=== PATIENT | male | born 1950 | race Caucasian/White ===

== ENCOUNTER 2022-06-09 14:46 | Inpatient (IN) | payer MEDICARE, BC ==
[~2022-06-09] VITALS: Ht 182.9 cm; Wt 83.6 kg
[2022-06-09] MEDS ORDERED: IV NORMAL SALINE 1000 ML BAG IV ONE (15:00)
[2022-06-09] MEDS ORDERED: ACETAMINOPHEN ES 500 MG TABLET PO ONE (15:00)
[2022-06-09] MEDS ORDERED: ACETAMINOPHEN 325 MG TABLET ONE (15:10)
[2022-06-09 15:16] LABS: HEMATOCRIT 43.6 % (36.7-47.1); MEAN CORPUSCULAR HEMOGLOBIN 30.2 uug (23.8-33.4); MEAN CORPUSCULAR VOLUME 90.8 fL (73.0-96.2); PLATELET COUNT (AUTO) 291 K/uL (152-348)
[2022-06-09 15:26] LABS: CARBON DIOXIDE 24 mmol/L (21-32); CHLORIDE 101 mmol/L (98-107); GLUCOSE 145 mg/dL (74-106); POTASSIUM 3.3 mmol/L (3.5-5.1); UREA NITROGEN, BLOOD 17 mg/dL (7-18)
[2022-06-09 15:35] LABS: ALANINE AMINOTRANSFERASE 29 U/L (16-63); ALKALINE PHOSPHATASE 91 U/L (50-136); ASPARTATE AMINOTRANSFERASE 19 U/L (15-37); BILIRUBIN,DIRECT 0.1 mg/dL (0.0-0.2); BILIRUBIN,TOTAL 0.6 mg/dL (0.2-1.0); TOTAL PROTEIN, SERUM 7.2 g/dL (6.4-8.2)
[2022-06-09] MEDS ORDERED: LIDOCAINE 1%-EPI 1:100,000 20 ML VIAL ONE (17:11)
[2022-06-09] MEDS ORDERED: MAGNESIUM HYDROXIDE 30 ML LIQUID UDC PO PRN (19:30)
[2022-06-09] MEDS ORDERED: ONDANSETRON 4 MG/2 ML VIAL IV PRN (19:30)
[2022-06-09] MEDS ORDERED: HYDROCODONE/APAP 5-325MG TABLET PO PRN (19:30)
[2022-06-09] MEDS ORDERED: REMEDY ESSENTIAL ZINC PASTE 113 GM TP PRN (19:30)
[2022-06-09] MEDS ORDERED: ACETAMINOPHEN 325 MG TABLET PO PRN (19:30)
[2022-06-09 21:00] VITALS: BP 107/45
[2022-06-10] VITALS: BP 107/76
[2022-06-10 04:00] VITALS: BP 110/74
[2022-06-10] MEDS: PANTOPRAZOLE SODIUM 40 MG TABLET.DR PO SCH ×2 (06:05→09:22)
[2022-06-10] MEDS ORDERED: POTASSIUM CHLORIDE 20 MEQ POWDER PACKET PO ONE (08:00)
[2022-06-10 08:18] LABS: HEMATOCRIT 41.5 % (36.7-47.1); MEAN CORPUSCULAR HEMOGLOBIN 30.1 uug (23.8-33.4); MEAN CORPUSCULAR VOLUME 89.9 fL (73.0-96.2); PLATELET COUNT (AUTO) 251 K/uL (152-348)
[2022-06-10 08:39] LABS: THYROID STIMULATING HORMONE 1.645 mIU/mL (0.358-3.740)
[2022-06-10 08:47] LABS: CREATININE 0.8 mg/dL (0.6-1.3); MAGNESIUM 2.1 mg/dL (1.8-2.4); PHOSPHOROUS 2.8 mg/dL (2.5-4.9)
[2022-06-10] MEDS ORDERED: LOSARTAN POTASSIUM 50 MG TABLET PO SCH (09:00)
[2022-06-10] MEDS ORDERED: LOSARTAN POTASSIUM 50 MG TABLET PO ONE (10:30)
[2022-06-10 12:54] VITALS: BP 119/76
[2022-06-11] MEDS ORDERED: LOSARTAN POTASSIUM 50 MG TABLET PO SCH (09:00)
== END 2022-06-10 14:50 | disposition home health service (06) | DRG 74 ==
LOC: ER 14:46 → TELE3 20:07
PROVIDERS: ADMIT Student in an Organized Health Care Education/Training Program; ATTEND Student in an Organized Health Care Education/Training Program
DX: G90.8 Other disorders of autonomic nervous system (principal); M48.02 Spinal stenosis, cervical region; E78.5 Hyperlipidemia, unspecified; E87.6 Hypokalemia; I10 Essential (primary) hypertension; Z20.822 Contact with and (suspected) exposure to COVID-19; T50.2X5A Adverse effect of carbonic-anhydrase inhibitors, benzothiadiazides and other diuretics, initial encounter; Y92.009 Unspecified place in unspecified non-institutional (private) residence as the place of occurrence of the external cause; E86.0 Dehydration
CPT/HCPCS: 36415; 70450; 71045; 72125; 83735; 84100; 84443; 84484; 85025; 93005; 93307; 93880; A4663; G0378; J3490; J7040

== ENCOUNTER 2022-06-18 18:34 | Emergency (ER) | payer MEDICARE, BC ==
[~2022-06-18] VITALS: Ht 182.9 cm; Wt 83.9 kg
--- NOTE | 2022-06-18 19:18 | NUR ---
PT WAS EVALUATED BY DR RIGGS. PT WAS D/C'd TO HOME. D/C INSTRUCTIONS GIVEN TO THE PT BY DR RIGGS.
[2022-06-18 19:23] VITALS: BP 141/69
== END 2022-06-18 19:24 | disposition home or self-care (01) ==
LOC: ER 18:37
DX: S01.01XD Laceration without foreign body of scalp, subsequent encounter (principal); E78.5 Hyperlipidemia, unspecified; X58.XXXD Exposure to other specified factors, subsequent encounter
CPT/HCPCS: A4663